=== PATIENT | female | born 1930 | race Caucasian/White ===

== ENCOUNTER 2017-05-08 18:42 | Inpatient (IN) ==
[2017-05-08] MEDS ORDERED: DILTIAZEM 50 MG/10 ML VIAL IV STA ×3 (19:45→22:06)
[2017-05-08] MEDS ORDERED: DILTIAZEM 50 MG/10 ML VIAL IV ONE (20:44)
[2017-05-08 21:14] LABS: Basophils # 0.1 10*3/uL (0.0-0.2); Basophils % 0.7 % (0.0-0.8); Eosinophils # 0.6 10*3/uL (0.0-0.87); Eosinophils % 5.3 % (0.00-10.9); Hematocrit 39.3 VOL% (35.7-47.0); Immature Granulocytes % 0.5 %; Immature Granulocytes Absolute 0.05 #; Lymphocytes # 1.4 10*3/uL (1.4-4.0); Lymphocytes % 12.9 % (21.3-54.2); Mean Corpuscular HGB Conc 33.1 GM/DL (32-36); Mean Corpuscular Hemoglobin 33 PG (27-34); Mean Corpuscular Volume 99.7 FL (87-102); Mean Platelet Volume 10.8 FL (9.6-12.0); Monocytes % 9.8 % (1.7-12.7); Neutrophils # 7.4 10*3/uL (1.4-7.4); Neutrophils % 70.8 % (38.7-73.9); Platelet Count 301 T/CUMM (130-400); Red Blood Count 3.94 MC/CUMM (3.8-5.5); Red Cell Distribution Width 13.4 % (9.3-17.3); White Blood Count 10.4 T/CUMM (4-12)
[2017-05-08] MEDS ORDERED: DILTIAZEM INJ 100 MG in SODIUM CHLORIDE 0.9% 100 ML IV SCH (22:00)
[2017-05-08 22:11] LABS: Albumin 3.3 G/DL (3.4-5.0); Bilirubin,Total 0.5 MG/DL (0.2-1.0); Osmolality,Calculated 276.5 MOS/KG (273-304); Potassium 4.3 MMOL/L (3.5-5.1); Thyroid Stimulating Hormone 2.31 uIU/ml (0.358-3.74); Total Protein 6.2 G/DL (6.4-8.3); Troponin I Only 0.04 NG/ML (0.00-0.045)
[2017-05-08] MEDS ORDERED: SODIUM CHLORIDE 0.45% 1,000 ML IV SCH (23:45)
[2017-05-08] MEDS ORDERED: ACETAMINOPHEN 325 MG TABLET PO PRN (23:58)
[2017-05-08] MEDS ORDERED: ONDANSETRON 4 MG/2 ML VIAL IV PRN (23:58)
[2017-05-08] MEDS ORDERED: MORPHINE 2 MG/1 ML SYRINGE IV PRN (23:58)
[2017-05-09] MEDS ORDERED: FLUTICASONE 50 MCG NASAL SPRAY 16 GM BOTTLE BOTH NARES PRN (00:03)
[2017-05-09] MEDS ORDERED: AMIODARONE 450 MG/9 ML VIAL IV ONE (03:46)
[2017-05-09] MEDS: AMIODARONE INJ 450 MG in DEXTROSE 5% 241 ML IV SCH ×3 (03:54→21:22)
[2017-05-09 05:46] LABS: Basophils # 0.1 10*3/uL (0.0-0.2); Basophils % 1.1 % (0.0-0.8); Eosinophils # 0.5 10*3/uL (0.0-0.87); Eosinophils % 6.6 % (0.00-10.9); Hematocrit 37.1 VOL% (35.7-47.0); Hemoglobin 12.2 GM/DL (12.0-16.0); Immature Granulocytes % 0.4 %; Immature Granulocytes Absolute 0.03 #; Lymphocytes # 1.3 10*3/uL (1.4-4.0); Lymphocytes % 17.8 % (21.3-54.2); Mean Corpuscular HGB Conc 32.9 GM/DL (32-36); Mean Corpuscular Hemoglobin 33 PG (27-34); Mean Platelet Volume 11.1 FL (9.6-12.0); Monocytes # 0.8 10*3/uL (0.11-0.8); Neutrophils # 4.7 10*3/uL (1.4-7.4); Neutrophils % 63.1 % (38.7-73.9); Platelet Count 285 T/CUMM (130-400); Red Blood Count 3.71 MC/CUMM (3.8-5.5); Red Cell Distribution Width 13.7 % (9.3-17.3); White Blood Count 7.4 T/CUMM (4-12)
[2017-05-09 06:21] LABS: Albumin 3.1 G/DL (3.4-5.0); Bilirubin,Total 0.7 MG/DL (0.2-1.0); Calcium 8.4 MG/DL (8.5-10.1); Osmolality,Calculated 275.7 MOS/KG (273-304); Potassium 4.4 MMOL/L (3.5-5.1); Total Protein 5.7 G/DL (6.4-8.3)
[2017-05-09] MEDS: ENOXAPARIN 40 MG/0.4 ML SYRINGE SUBCUT SCH ×3 (10:06→17:22)
[2017-05-09] MEDS: DILTIAZEM 60 MG TABLET PO SCH ×3 (10:07→22:06)
[2017-05-09] MEDS: TIMOLOL 0.5% OPH SOLN 5 ML BOTTLE BOTH EYES SCH (10:07)
[2017-05-09] MEDS: LETROZOLE 2.5 MG TABLET PO SCH (10:07)
[2017-05-09] MEDS: METOPROLOL TARTRATE 50 MG TABLET PO SCH ×2 (10:07→22:06)
[2017-05-09] MEDS: PANTOPRAZOLE 40 MG TABLET PO SCH (10:07)
[2017-05-09] MEDS: methylPREDNISolone SOD SUC 40 MG/1 ML VIAL IV SCH (22:05)
[2017-05-09] MEDS: cefTRIAXone 1,000 MG in SYRINGE 1 EACH IV SCH (22:06)
[2017-05-09] MEDS: ZALEPLON 5 MG CAPSULE PO PRN (22:06)
[2017-05-09] MEDS: DOCUSATE SODIUM 100 MG CAPSULE PO PRN (22:06)
[2017-05-10] MEDS: ALBUTEROL/IPRATROPIUM 3 ML NEB RESP TX PRN ×2 (01:49→13:55)
[2017-05-10] MEDS: methylPREDNISolone SOD SUC 40 MG/1 ML VIAL IV SCH ×4 (04:38→21:51)
[2017-05-10 05:38] LABS: Basophils % 0.3 % (0.0-0.8); Eosinophils % 0.1 % (0.00-10.9); Hematocrit 37.8 VOL% (35.7-47.0); Hemoglobin 12.4 GM/DL (12.0-16.0); Immature Granulocytes % 0.4 %; Immature Granulocytes Absolute 0.03 #; Lymphocytes # 0.5 10*3/uL (1.4-4.0); Lymphocytes % 6.1 % (21.3-54.2); Mean Corpuscular HGB Conc 32.8 GM/DL (32-36); Mean Corpuscular Hemoglobin 33 PG (27-34); Mean Corpuscular Volume 99.2 FL (87-102); Mean Platelet Volume 11.5 FL (9.6-12.0); Monocytes # 0.1 10*3/uL (0.11-0.8); Monocytes % 1.1 % (1.7-12.7); Neutrophils # 7.2 10*3/uL (1.4-7.4); Platelet Count 281 T/CUMM (130-400); Red Blood Count 3.81 MC/CUMM (3.8-5.5); Red Cell Distribution Width 13.6 % (9.3-17.3); White Blood Count 7.9 T/CUMM (4-12)
[2017-05-10 06:10] LABS: Calcium 8.4 MG/DL (8.5-10.1); Osmolality,Calculated 276.8 MOS/KG (273-304); Potassium 4.5 MMOL/L (3.5-5.1)
[2017-05-10 06:40] LABS: Lymphocytes 9 % (20-55); Segmented Neutrophils 91 % (50-85)
[2017-05-10 06:41] LABS: Platelet Estimate Normal; Total Cells Counted 100
[2017-05-10] MEDS: ENOXAPARIN 40 MG/0.4 ML SYRINGE SUBCUT SCH (07:10)
[2017-05-10] MEDS: LETROZOLE 2.5 MG TABLET PO SCH (09:38)
[2017-05-10] MEDS: PANTOPRAZOLE 40 MG TABLET PO SCH (09:38)
[2017-05-10] MEDS: APIXABAN 2.5 MG TABLET PO SCH ×2 (09:38→21:51)
[2017-05-10] MEDS: DILTIAZEM 60 MG TABLET PO SCH ×3 (09:38→21:50)
[2017-05-10] MEDS: METOPROLOL TARTRATE 50 MG TABLET PO SCH ×2 (09:38→21:51)
[2017-05-10] MEDS: AMIODARONE 200 MG TABLET PO SCH ×2 (09:38→21:51)
[2017-05-10] MEDS: TIMOLOL 0.5% OPH SOLN 5 ML BOTTLE BOTH EYES SCH (09:39)
[2017-05-10] MEDS: guaiFENesin 200 MG/10 ML UDCUP PO PRN ×2 (14:26→21:51)
[2017-05-10] MEDS: ZALEPLON 5 MG CAPSULE PO PRN (21:51)
[2017-05-10] MEDS: cefTRIAXone 1,000 MG in SYRINGE 1 EACH IV SCH (22:38)
[2017-05-11] MEDS: methylPREDNISolone SOD SUC 40 MG/1 ML VIAL IV SCH ×2 (03:49→10:49)
[2017-05-11] MEDS: ALBUTEROL/IPRATROPIUM 3 ML NEB RESP TX PRN ×2 (04:00→21:15)
[2017-05-11] MEDS: APIXABAN 2.5 MG TABLET PO SCH ×2 (08:37→21:36)
[2017-05-11] MEDS: LETROZOLE 2.5 MG TABLET PO SCH (08:37)
[2017-05-11] MEDS: DILTIAZEM 60 MG TABLET PO SCH ×3 (08:37→21:14)
[2017-05-11] MEDS: METOPROLOL TARTRATE 50 MG TABLET PO SCH ×2 (08:38→21:14)
[2017-05-11] MEDS: PANTOPRAZOLE 40 MG TABLET PO SCH (08:38)
[2017-05-11] MEDS: TIMOLOL 0.5% OPH SOLN 5 ML BOTTLE BOTH EYES SCH (08:41)
[2017-05-11] MEDS: AMIODARONE 200 MG TABLET PO SCH ×2 (10:12→21:14)
[2017-05-11] MEDS: predniSONE 50 MG TABLET PO SCH (10:54)
[2017-05-11] MEDS: DOCUSATE SODIUM 100 MG CAPSULE PO PRN (21:13)
[2017-05-11] MEDS: ZALEPLON 5 MG CAPSULE PO PRN ×2 (21:13→23:26)
[2017-05-11] MEDS: cefTRIAXone 1,000 MG in SYRINGE 1 EACH IV SCH (23:18)
[2017-05-12 06:06] LABS: Hematocrit 36.6 VOL% (35.7-47.0); Hemoglobin 12.4 GM/DL (12.0-16.0); Immature Granulocytes % 0.6 %; Immature Granulocytes Absolute 0.08 #; Lymphocytes # 0.7 10*3/uL (1.4-4.0); Lymphocytes % 5.6 % (21.3-54.2); Mean Corpuscular HGB Conc 33.9 GM/DL (32-36); Mean Corpuscular Hemoglobin 33 PG (27-34); Mean Corpuscular Volume 97.6 FL (87-102); Mean Platelet Volume 11.3 FL (9.6-12.0); Monocytes # 0.7 10*3/uL (0.11-0.8); Monocytes % 5.3 % (1.7-12.7); Neutrophils # 11.8 10*3/uL (1.4-7.4); Neutrophils % 88.5 % (38.7-73.9); Platelet Count 312 T/CUMM (130-400); Red Blood Count 3.75 MC/CUMM (3.8-5.5); Red Cell Distribution Width 14.1 % (9.3-17.3); White Blood Count 13.3 T/CUMM (4-12)
[2017-05-12 06:51] LABS: Calcium 8.6 MG/DL (8.5-10.1); Potassium 4.6 MMOL/L (3.5-5.1)
[2017-05-12 08:08] VITALS: BP 126/65
[2017-05-12] MEDS: predniSONE 50 MG TABLET PO SCH (09:38)
[2017-05-12] MEDS: METOPROLOL TARTRATE 50 MG TABLET PO SCH (09:38)
[2017-05-12] MEDS: AMIODARONE 200 MG TABLET PO SCH (09:38)
[2017-05-12] MEDS: LETROZOLE 2.5 MG TABLET PO SCH (09:39)
[2017-05-12] MEDS: PANTOPRAZOLE 40 MG TABLET PO SCH (09:39)
[2017-05-12] MEDS: APIXABAN 2.5 MG TABLET PO SCH (09:39)
[2017-05-12] MEDS: TIMOLOL 0.5% OPH SOLN 5 ML BOTTLE BOTH EYES SCH (09:40)
[2017-05-12] MEDS: DILTIAZEM 60 MG TABLET PO SCH (09:45)
== END 2017-05-12 11:52 | disposition home or self-care (01) | DRG 309 ==
LOC: N.ED 18:42 → N.EDINP 23:58 → N.TELES 05-09 00:41
PROVIDERS: ADMIT Internal Medicine; ATTEND Internal Medicine

== ENCOUNTER 2017-12-05 10:58 | Inpatient (IN) ==
[2017-12-05 12:09] LABS: Basophils # 0.1 10*3/uL (0.0-0.2); Basophils % 0.7 % (0.0-0.8); Eosinophils # 0.1 10*3/uL (0.0-0.87); Eosinophils % 1.9 % (0.00-10.9); Hematocrit 39.7 VOL% (35.7-47.0); Hemoglobin 13.6 GM/DL (12.0-16.0); Immature Granulocytes % 0.4 %; Immature Granulocytes Absolute 0.03 #; Lymphocytes # 1.1 10*3/uL (1.4-4.0); Lymphocytes % 15.7 % (21.3-54.2); Mean Corpuscular HGB Conc 34.3 GM/DL (32-36); Mean Corpuscular Hemoglobin 35 PG (27-34); Mean Corpuscular Volume 101.5 FL (87-102); Mean Platelet Volume 10.3 FL (9.6-12.0); Monocytes # 0.7 10*3/uL (0.11-0.8); Monocytes % 9.6 % (1.7-12.7); Neutrophils # 4.9 10*3/uL (1.4-7.4); Neutrophils % 71.7 % (38.7-73.9); Platelet Count 245 T/CUMM (130-400); Red Blood Count 3.91 MC/CUMM (3.8-5.5); Red Cell Distribution Width 12.7 % (9.3-17.3); White Blood Count 6.9 T/CUMM (4-12)
[2017-12-05 12:28] LABS: INR 1.4; PT Patient Result 14.6 SECS; Partial Thromboplastin Time 39.4 SECS (0-40)
[2017-12-05 12:42] LABS: Albumin 3.4 G/DL (3.4-5.0); Bilirubin,Total 0.6 MG/DL (0.2-1.0); Calcium 8.1 MG/DL (8.5-10.1); Osmolality,Calculated 273.5 MOS/KG (273-304); Potassium 4.1 MMOL/L (3.5-5.1); Total Protein 6.1 G/DL (6.4-8.3)
[2017-12-05 18:37] LABS: Hematocrit 44.5 VOL% (35.7-47.0); Hemoglobin 14.7 GM/DL (12.0-16.0)
[2017-12-05 18:42] LABS: Apearance,Urine CLEAR (Clear); Bilirubin,Urine Negative (Negative); Blood, Urine Negative (Negative); Glucose,Urine (UA) Negative (Negative); Ketones,Urine Negative (Negative); Nitrite,Urine Negative (Negative); Protein,Urine Negative; RBC,Urine <1 /HPF (0-4); Squamous Epithelial Cell,Urine Occasional /HPF (0-10); Urine Color Yellow (Yellow); Urine Specific Gravity 1.009 (1.001-1.035); WBC,Urine 1 /HPF (0-6)
[2017-12-05 23:02] LABS: Hematocrit 41.6 VOL% (35.7-47.0)
[2017-12-06 05:49] LABS: Hematocrit 37.2 VOL% (35.7-47.0); Hemoglobin 12.8 GM/DL (12.0-16.0)
[2017-12-06 05:50] LABS: Basophils # 0.1 10*3/uL (0.0-0.2); Basophils % 0.7 % (0.0-0.8); Eosinophils # 0.2 10*3/uL (0.0-0.87); Eosinophils % 2.8 % (0.00-10.9); Hematocrit 37.8 VOL% (35.7-47.0); Hemoglobin 12.7 GM/DL (12.0-16.0); Immature Granulocytes % 0.5 %; Immature Granulocytes Absolute 0.04 #; Lymphocytes # 1.1 10*3/uL (1.4-4.0); Lymphocytes % 13.1 % (21.3-54.2); Mean Corpuscular HGB Conc 33.6 GM/DL (32-36); Mean Corpuscular Hemoglobin 34 PG (27-34); Mean Corpuscular Volume 101.6 FL (87-102); Mean Platelet Volume 10.9 FL (9.6-12.0); Monocytes # 1.1 10*3/uL (0.11-0.8); Monocytes % 12.7 % (1.7-12.7); Neutrophils # 6.1 10*3/uL (1.4-7.4); Neutrophils % 70.2 % (38.7-73.9); Platelet Count 237 T/CUMM (130-400); Red Blood Count 3.72 MC/CUMM (3.8-5.5); Red Cell Distribution Width 12.8 % (9.3-17.3); White Blood Count 8.6 T/CUMM (4-12)
[2017-12-06 06:40] LABS: Calcium 8.1 MG/DL (8.5-10.1); Potassium 3.8 MMOL/L (3.5-5.1); Thyroid Stimulating Hormone 1.46 uIU/ml (0.358-3.74); VLDL CHOLESTEROL 9.6 MG/DL
[2017-12-07 06:37] LABS: Basophils # 0.1 10*3/uL (0.0-0.2); Basophils % 0.6 % (0.0-0.8); Eosinophils # 0.5 10*3/uL (0.0-0.87); Eosinophils % 5.5 % (0.00-10.9); Hematocrit 39.6 VOL% (35.7-47.0); Hemoglobin 13.1 GM/DL (12.0-16.0); Immature Granulocytes % 0.7 %; Immature Granulocytes Absolute 0.07 #; Lymphocytes # 1.2 10*3/uL (1.4-4.0); Lymphocytes % 12.3 % (21.3-54.2); Mean Corpuscular HGB Conc 33.1 GM/DL (32-36); Mean Corpuscular Hemoglobin 34 PG (27-34); Mean Corpuscular Volume 103.7 FL (87-102); Monocytes # 1.2 10*3/uL (0.11-0.8); Monocytes % 12.4 % (1.7-12.7); Neutrophils # 6.4 10*3/uL (1.4-7.4); Neutrophils % 68.5 % (38.7-73.9); Platelet Count 234 T/CUMM (130-400); Red Blood Count 3.82 MC/CUMM (3.8-5.5); Red Cell Distribution Width 12.8 % (9.3-17.3); White Blood Count 9.3 T/CUMM (4-12)
[2017-12-07 07:16] LABS: Calcium 8.2 MG/DL (8.5-10.1); Osmolality,Calculated 280.1 MOS/KG (273-304); Potassium 3.8 MMOL/L (3.5-5.1)
[2017-12-07 14:44] VITALS: BP 156/75
== END 2017-12-07 13:08 | disposition home or self-care (01) | DRG 394 ==
LOC: N.ED 10:58 → SUATTDRO 13:11 → N.EDINP 13:11 → N.5E 15:12
PROVIDERS: ATTEND Internal Medicine

== ENCOUNTER 2019-01-01 11:03 | Inpatient (IN) ==
[2019-01-01 11:56] LABS: Basophils % 0.2 % (0.0-0.8); Eosinophils # 0.1 10*3/uL (0.0-0.87); Eosinophils % 0.6 % (0.00-10.9); Hemoglobin 13.3 GM/DL (12.0-16.0); Immature Granulocytes % 0.6 %; Lymphocytes # 0.4 10*3/uL (1.4-4.0); Lymphocytes % 2.6 % (21.3-54.2); Mean Corpuscular HGB Conc 33.3 GM/DL (32-36); Mean Corpuscular Volume 100.8 FL (87-102); Mean Platelet Volume 10.5 FL (9.6-12.0); Platelet Count 253 T/CUMM (130-400); Red Blood Count 3.97 MC/CUMM (3.8-5.5); Red Cell Distribution Width 13.2 % (9.3-17.3); White Blood Count 16.1 T/CUMM (4-12)
[2019-01-01] MEDS ORDERED: SODIUM CHLORIDE 0.9% 500 ML IV STA (12:15)
[2019-01-01 12:23] LABS: Band Neutrophils 1 % (0-10); Lymphocytes 1 % (20-55); Polychromasia Slight; Segmented Neutrophils 97 % (50-85); Total Cells Counted 100
[2019-01-01 12:24] LABS: Platelet Estimate Normal
[2019-01-01 13:22] LABS: Apearance,Urine CLEAR (Clear); Bilirubin,Urine Negative (Negative); Blood, Urine Small mg/dL (Negative); Glucose,Urine (UA) Negative (Negative); Hyaline Casts,Urine 1 /LPF (0-3); Ketones,Urine Negative (Negative); Nitrite,Urine Negative (Negative); Protein,Urine Negative; RBC,Urine 7 /HPF (0-4); Squamous Epithelial Cell,Urine Occasional /HPF (0-10); Urine Color Yellow (Yellow); Urine Specific Gravity 1.041 (1.001-1.035); Urine Urobilinogen < 2.0 EU/DL (0.2-1.0); WBC,Urine 1 /HPF (0-6)
[2019-01-01] MEDS ORDERED: SODIUM CHLORIDE 0.9% 1,000 ML IV STA (13:40)
[2019-01-01] MEDS ORDERED: methylPREDNISolone SOD SUC 40 MG/1 ML VIAL IV STA (14:04)
[2019-01-01 14:10] LABS: Alanine Aminotransferase 21 U/L (13-56); Albumin 3.1 G/DL (3.4-5.0); Aspartate Amino Transferase 16 U/L (0-37); Blood Urea Nitrogen 13 MG/DL (7-18); Calcium 8.3 MG/DL (8.5-10.1); Glucose 113 MG/DL (74-106); Total Protein 6.2 G/DL (6.4-8.3)
[2019-01-01 14:23] LABS: Alkaline Phosphatase 73 U/L (45-117)
[2019-01-01] MEDS ORDERED: ACETAMINOPHEN 500 MG TABLET PO STA (14:27)
[2019-01-01] MEDS ORDERED: cefTRIAXone 1,000 MG in SODIUM CHLORIDE 0.9% 100 ML IV STA (14:27)
[2019-01-01] MEDS ORDERED: ACETAMINOPHEN 500 MG TABLET ONE (14:28)
[2019-01-01] MEDS ORDERED: diphenhydrAMINE CAP 25 MG CAPSULE PO STA (15:36)
[2019-01-01] MEDS ORDERED: ONDANSETRON 4 MG/2 ML VIAL IV PRN (15:42)
[2019-01-01] MEDS ORDERED: DIPHENHYDRAMINE ACETAMINOPHEN PO PRN (15:55)
[2019-01-01] MEDS: SODIUM CHLORIDE 0.9% 1,000 ML IV SCH (17:25)
[2019-01-01] MEDS: POLYETHYLENE GLYCOL POWDER 17 GM PACK PO SCH (18:12)
[2019-01-01] MEDS ORDERED: NITROFURANTOIN MACROCRYSTALS 50 MG CAPSULE PO SCH (21:00)
[2019-01-01] MEDS ORDERED: ENOXAPARIN 40 MG/0.4 ML SYRINGE SUBCUT SCH (21:00)
[2019-01-01] MEDS: LEVOTHYROXINE 50 MCG TABLET PO SCH (21:26)
[2019-01-01] MEDS: LETROZOLE 2.5 MG TABLET PO SCH (21:26)
[2019-01-01] MEDS: ACETAMINOPHEN 325 MG TABLET PO PRN (21:30)
[2019-01-01] MEDS: diphenhydrAMINE CAP 25 MG CAPSULE PO PRN (21:30)
[2019-01-02] MEDS: diphenhydrAMINE CAP 25 MG CAPSULE PO PRN ×3 (04:19→21:11)
[2019-01-02] MEDS: ACETAMINOPHEN 325 MG TABLET PO PRN ×2 (04:20→21:11)
[2019-01-02 06:06] LABS: Basophils % 0.1 % (0.0-0.8); Hematocrit 35.1 VOL% (35.7-47.0); Hemoglobin 11.3 GM/DL (12.0-16.0); Immature Granulocytes % 0.6 %; Immature Granulocytes Absolute 0.05 #; Lymphocytes # 0.3 10*3/uL (1.4-4.0); Lymphocytes % 3.6 % (21.3-54.2); Mean Corpuscular HGB Conc 32.2 GM/DL (32-36); Mean Corpuscular Volume 101.7 FL (87-102); Mean Platelet Volume 10.6 FL (9.6-12.0); Monocytes % 2.9 % (1.7-12.7); Neutrophils % 92.8 % (38.7-73.9); Platelet Count 204 T/CUMM (130-400); Red Blood Count 3.45 MC/CUMM (3.8-5.5); Red Cell Distribution Width 13.3 % (9.3-17.3)
[2019-01-02 06:55] LABS: Calcium 7.7 MG/DL (8.5-10.1); Osmolality,Calculated 280.4 MOS/KG (273-304); Risk Ratio 3.72; Thyroid Stimulating Hormone 0.19 uIU/ml (0.358-3.74); VLDL CHOLESTEROL 11.6 MG/DL
[2019-01-02 07:01] LABS: Lymphocytes 1 % (20-55); Segmented Neutrophils 93 % (50-85); Total Cells Counted 100
[2019-01-02 07:02] LABS: Anisocytosis Slight; Macrocytosis Slight
[2019-01-02 07:03] LABS: Platelet Estimate Normal
[2019-01-02] MEDS: cefTRIAXone 1,000 MG in SYRINGE 1 EACH IV SCH (10:03)
[2019-01-02] MEDS: RIVAROXABAN 20 MG TABLET PO SCH (10:03)
[2019-01-02] MEDS: TIMOLOL 0.5% OPH SOLN 5 ML BOTTLE BOTH EYES SCH (10:03)
[2019-01-02] MEDS: PANTOPRAZOLE 40 MG TABLET PO SCH (10:03)
[2019-01-02] MEDS: POLYETHYLENE GLYCOL POWDER 17 GM PACK PO SCH (10:03)
[2019-01-02] MEDS: SODIUM CHLORIDE 0.9% 1,000 ML IV SCH (10:54)
[2019-01-02] MEDS: MULTIVITAMIN (CENTRUM) TABLET PO SCH (13:49)
[2019-01-02] MEDS: MULTIVITAMIN (OCUVITE) TABLET PO SCH (13:49)
[2019-01-02] MEDS ORDERED: predniSONE 20 MG TABLET PO ONE (16:13)
[2019-01-02] MEDS: LEVOTHYROXINE 50 MCG TABLET PO SCH (21:11)
[2019-01-02] MEDS: LETROZOLE 2.5 MG TABLET PO SCH (21:11)
[2019-01-03 04:59] LABS: Hematocrit 37.9 VOL% (35.7-47.0); Hemoglobin 12.5 GM/DL (12.0-16.0); Immature Granulocytes % 0.4 %; Immature Granulocytes Absolute 0.03 #; Lymphocytes # 0.6 10*3/uL (1.4-4.0); Lymphocytes % 8.6 % (21.3-54.2); Mean Corpuscular Volume 101.1 FL (87-102); Mean Platelet Volume 11.6 FL (9.6-12.0); Monocytes % 3.9 % (1.7-12.7); Neutrophils % 87.1 % (38.7-73.9); Platelet Count 247 T/CUMM (130-400); Red Blood Count 3.75 MC/CUMM (3.8-5.5); Red Cell Distribution Width 13.7 % (9.3-17.3); White Blood Count 7.4 T/CUMM (4-12)
[2019-01-03 05:22] LABS: Calcium 8.3 MG/DL (8.5-10.1); Osmolality,Calculated 289.8 MOS/KG (273-304)
[2019-01-03] MEDS: PANTOPRAZOLE 40 MG TABLET PO SCH (09:00)
[2019-01-03] MEDS: RIVAROXABAN 20 MG TABLET PO SCH (09:00)
[2019-01-03] MEDS: TIMOLOL 0.5% OPH SOLN 5 ML BOTTLE BOTH EYES SCH (09:01)
[2019-01-03] MEDS: cefTRIAXone 1,000 MG in SYRINGE 1 EACH IV SCH (09:03)
[2019-01-03] MEDS: POLYETHYLENE GLYCOL POWDER 17 GM PACK PO SCH (09:03)
[2019-01-03] MEDS: MULTIVITAMIN (OCUVITE) TABLET PO SCH (11:04)
[2019-01-03] MEDS: MULTIVITAMIN (CENTRUM) TABLET PO SCH (11:04)
[2019-01-03] MEDS: LETROZOLE 2.5 MG TABLET PO SCH (20:28)
[2019-01-03] MEDS: ACETAMINOPHEN 325 MG TABLET PO PRN (23:07)
[2019-01-04 06:17] LABS: Basophils % 0.3 % (0.0-0.8); Eosinophils # 0.5 10*3/uL (0.0-0.87); Eosinophils % 6.1 % (0.00-10.9); Hematocrit 37.6 VOL% (35.7-47.0); Immature Granulocytes % 0.5 %; Immature Granulocytes Absolute 0.04 #; Lymphocytes # 1.3 10*3/uL (1.4-4.0); Lymphocytes % 16.8 % (21.3-54.2); Mean Corpuscular HGB Conc 31.9 GM/DL (32-36); Mean Corpuscular Volume 102.2 FL (87-102); Mean Platelet Volume 10.7 FL (9.6-12.0); Neutrophils % 64.3 % (38.7-73.9); Platelet Count 245 T/CUMM (130-400); Red Blood Count 3.68 MC/CUMM (3.8-5.5); Red Cell Distribution Width 13.4 % (9.3-17.3)
[2019-01-04] MEDS ORDERED: LEVOTHYROXINE 50 MCG TABLET PO SCH (06:30)
[2019-01-04 06:42] LABS: Calcium 7.7 MG/DL (8.5-10.1)
[2019-01-04 07:42] VITALS: BP 148/67
[2019-01-04] MEDS: PANTOPRAZOLE 40 MG TABLET PO SCH (08:04)
[2019-01-04] MEDS: RIVAROXABAN 20 MG TABLET PO SCH (08:04)
[2019-01-04] MEDS: cefTRIAXone 1,000 MG in SYRINGE 1 EACH IV SCH (08:06)
[2019-01-04] MEDS: TIMOLOL 0.5% OPH SOLN 5 ML BOTTLE BOTH EYES SCH (08:06)
[2019-01-04] MEDS: POLYETHYLENE GLYCOL POWDER 17 GM PACK PO SCH (08:06)
== END 2019-01-04 11:07 | disposition home or self-care (01) | DRG 607 ==
LOC: N.ED 11:03 → N.EDINP 15:35 → SUATTDRO 15:35 → N.5E 17:00
PROVIDERS: ADMIT Internal Medicine; ATTEND Internal Medicine Geriatric Medicine

== ENCOUNTER 2019-07-08 19:57 | Observation (INO) ==
[2019-07-08 20:38] LABS: Basophils # 0.1 10*3/uL (0.0-0.2); Basophils % 1.2 % (0.0-0.8); Eosinophils # 0.2 10*3/uL (0.0-0.87); Eosinophils % 2.9 % (0.00-10.9); Hematocrit 40.1 VOL% (35.7-47.0); Immature Granulocytes % 0.2 %; Immature Granulocytes Absolute 0.01 #; Lymphocytes # 1.2 10*3/uL (1.4-4.0); Lymphocytes % 18.2 % (21.3-54.2); Mean Corpuscular HGB Conc 32.4 GM/DL (32-36); Mean Corpuscular Volume 99.5 FL (87-102); Monocytes % 12.8 % (1.7-12.7); Neutrophils % 64.7 % (38.7-73.9); Platelet Count 254 T/CUMM (130-400); Red Blood Count 4.03 MC/CUMM (3.8-5.5); Red Cell Distribution Width 13.1 % (9.3-17.3); White Blood Count 6.5 T/CUMM (4-12)
[2019-07-08 21:03] LABS: Albumin 3.3 G/DL (3.4-5.0); Bilirubin,Total 0.4 MG/DL (0.2-1.0); Calcium 8.9 MG/DL (8.5-10.1); Osmolality,Calculated 272.7 MOS/KG (273-304); Thyroid Stimulating Hormone 1.75 uIU/ml (0.358-3.74); Total Protein 6.2 G/DL (6.4-8.3)
[2019-07-08 21:33] LABS: INR 1.1; PT Patient Result 12.1 SECS (9.6-12.2); Partial Thromboplastin Time 30.8 SECS (20.8-36.0)
[2019-07-08] MEDS ORDERED: NITROGLYCERIN SL 0.4 MG TABLET SL PRN (21:58)
[2019-07-08] MEDS ORDERED: DEXTROSE 50% 25 GM/50 ML VIAL IV PRN (21:58)
[2019-07-08] MEDS ORDERED: ONDANSETRON 4 MG/2 ML VIAL IV PRN (21:58)
[2019-07-08] MEDS ORDERED: FUROSEMIDE 20 MG TABLET PO ONE (21:58)
[2019-07-08] MEDS ORDERED: GLUCAGON 1 MG VIAL IM PRN (21:58)
[2019-07-08] MEDS ORDERED: ACETAMINOPHEN 325 MG TABLET PO PRN (21:58)
[2019-07-08 22:30] LABS: Apearance,Urine CLEAR (Clear); Bilirubin,Urine Negative (Negative); Blood, Urine Negative (Negative); Glucose,Urine (UA) Negative (Negative); Hyaline Casts,Urine 1 /LPF (0-3); Ketones,Urine Negative (Negative); Mucus,Urine Occasional /LPF (Occasional); Nitrite,Urine Negative (Negative); Protein,Urine Negative; RBC,Urine <1 /HPF (0-4); Urine Color Yellow (Yellow); Urine Specific Gravity 1.004 (1.001-1.035); Urine Urobilinogen < 2.0 EU/DL (0.2-1.0); WBC,Urine <1 /HPF (0-6)
[2019-07-08 23:17] LABS: Risk Ratio 3.61; VLDL CHOLESTEROL 13.2 MG/DL
[2019-07-08 23:22] LABS: Troponin I 0.103 NG/ML (0.00-0.045)
[2019-07-09] MEDS ORDERED: hydrALAZINE 20 MG/1 ML VIAL IV PRN (00:53)
[2019-07-09 01:39] LABS: Troponin I 0.108 NG/ML (0.00-0.045)
[2019-07-09 05:31] LABS: Troponin I 0.096 NG/ML (0.00-0.045)
[2019-07-09] MEDS ORDERED: RIVAROXABAN 20 MG TABLET PO SCH (08:00)
[2019-07-09] MEDS ORDERED: TIMOLOL 0.5% OPH SOLN 5 ML BOTTLE BOTH EYES SCH (09:00)
[2019-07-09] MEDS ORDERED: PANTOPRAZOLE 40 MG TABLET PO SCH (09:00)
[2019-07-09] MEDS ORDERED: carvediloL 3.125 MG TABLET PO SCH (09:00)
[2019-07-09] MEDS ORDERED: amLODIPine 10 MG TABLET PO SCH (09:00)
[2019-07-09] MEDS ORDERED: ASPIRIN EC 81 MG TABLET PO SCH (09:00)
[2019-07-09 12:07] VITALS: BP 134/52
[2019-07-09] MEDS ORDERED: LEVOTHYROXINE 50 MCG TABLET PO SCH (21:00)
[2019-07-09] MEDS ORDERED: LETROZOLE 2.5 MG TABLET PO SCH (21:00)
[2019-07-09] MEDS ORDERED: ATORVASTATIN 40 MG TABLET PO SCH (21:00)
[2019-07-10] MEDS ORDERED: RIVAROXABAN 20 MG TABLET PO SCH (08:00)
== END 2019-07-09 15:30 | disposition home or self-care (01) ==
LOC: N.EDINP 19:57 → N.ED 19:57 → N.2E 22:30
PROVIDERS: ADMIT Family Medicine; ATTEND Family Medicine